=== PATIENT | male | born 1995 | race African-American/Black ===

== ENCOUNTER 2019-09-27 08:26 | Emergency (ER) | payer SELFPAY ==
[~2019-09-27] VITALS: Ht 177.8 cm; Wt 78.5 kg
[~2019-09-27 08:26] MED LIST: IBUP-1986 PO
[2019-09-27 08:35] VITALS: BP 140/92
[2019-09-27] MEDS ORDERED: HYDR-4383 PO (09:25)
[2019-09-27] MEDS ORDERED: CHLO473M3 PO (09:25)
[2019-09-27] MEDS ORDERED: AMOX500C2 PO (09:25)
== END 2019-09-27 09:38 | disposition home or self-care (01) ==
LOC: ER 08:26
DX: K05.20 Aggressive periodontitis, unspecified (principal); Z56.0 Unemployment, unspecified; Z79.899 Other long term (current) drug therapy
CPT/HCPCS: 99283

== ENCOUNTER 2020-05-21 10:30 | Emergency (ER) | payer MEDICAID, OTHER ==
[~2020-05-21] VITALS: Ht 177.8 cm; Wt 79.0 kg
[~2020-05-21 10:30] MED LIST changes: +CHLO473M3 PO; +HYDR-4383 PO
[2020-05-21 11:00] VITALS: BP 126/86
[2020-05-21 11:29] LABS: CLARITY,URINE CLEAR (Clear); COLOR,URINE YELLOW (Yellow); GLUCOSE, URINE NEGATIVE (Neg); KETONES,URINE NEGATIVE (Neg); LEUKOCYTE ESTERASE ,URINE TRACE (Neg); NITRITES, URINE NEGATIVE (Neg); OCCULT BLOOD,URINE NEGATIVE (Neg); PH,URINE 5.5 (4.8-8.0); PROTEIN,URINE NEGATIVE (Neg); UROBILINOGEN,URINE 0.2 E.U/dL (0.2-1.0)
[2020-05-21 11:34] LABS: UA COLLECTION TYPE NON-SPECIFIED
[2020-05-21 11:35] LABS: BACTERIA,URINE NONE SEEN /HPF (Neg); MUCUS STRANDS FEW /LPF (Neg); RBC,URINE NONE SEEN /HPF (0-2); SQUAMOUS EPITHELIAL CELL,UR NONE SEEN /LPF (FEW)
[2020-05-21 11:39] LABS: URINE AMPHETAMINE SCREEN NEGATIVE (Neg); URINE BARBITUATE SCREEN NEGATIVE (Neg); URINE BENZODIAZEPINES SCREEN NEGATIVE (Neg); URINE CANNABINOID SCREEN POSITIVE (Neg); URINE COCAINE SCREEN NEGATIVE (Neg); URINE METHADONE SCREEN NEGATIVE (Neg); URINE OPIATE SCREEN NEGATIVE (Neg); URINE PHENCYCLIDINE SCREEN NEGATIVE (Neg)
[2020-05-21 13:33] LABS: BASOPHILS % (AUTO) 0.6 % (0-1); EOSINOPHILS % (AUTO) 0.7 % (0-6); HEMATOCRIT 44.9 % (42.0-52.0); HEMOGLOBIN 14.1 g/dl (14.0-17.9); LYMPHOCYTES # (AUTO) 2.2 X10'3 (1.1-4.8); LYMPHOCYTES % (AUTO) 44.3 % (21-51); MEAN CORPUSCULAR HEMOGLOBIN 23.2 PG (27.0-31.0); MEAN CORPUSCULAR HGB CONC 31.5 g/dL (33.0-36.5); MEAN CORPUSCULAR VOLUME 73.8 FL (78-98); MEAN PLATELET VOLUME 8.1 FL (7.4-10.4); MONOCYTES # (AUTO) 0.4 X10'3 (0-0.9); NEUTROPHILS # (AUTO) 2.3 X10'3 (1.8-7.7); NEUTROPHILS % (AUTO) 46.4 % (42-75); PLATELET COUNT 248 X10'3 (140-440); RED BLOOD COUNT 6.08 X10'6 (4.70-6.10); RED CELL DISTRIBUTION WIDTH 15.3 % (11.5-14.5)
[2020-05-21 13:43] LABS: ALANINE AMINOTRANSFERASE 17 U/L (12-78); ALBUMIN/GLOBULIN RATIO 1.1 (1.1-1.5); ALKALINE PHOSPHATASE 92 IU/L (46-116); ANION GAP 9 (8-16); ASPARTATE AMINO TRANSFERASE 18 U/L (10-37); BILIRUBIN,TOTAL 0.3 MG/DL (0.1-1.0); BLOOD UREA NITROGEN 5 MG/DL (7-18); BUN/CREATININE RATIO 5.7 (5.4-32.0); CALCIUM 8.9 MG/DL (8.5-10.1); CHLORIDE 108 MMOL/L (99-107); CREATININE 0.87 MG/DL (0.60-1.10); GLUCOSE 80 MG/DL (70-104); SODIUM 146 MMOL/L (135-145); TOTAL CARBON DIOXIDE 28.7 MMOL/L (24-32); TOTAL PROTEIN 7.7 G/DL (6.4-8.2); eGFR > 90 ML/MIN
--- NOTE | 2020-05-21 15:00 | NUR ---
1100am 05/21/2020 SART exam beagn in ER bed 12 PT verbalizes understanding of exam and consents PT remains calm and cooperative throughout exam Pt's vitals WNL at exam's start dirty urine collected and sent to lab for UA and drug screen. Pt's answers questions prompted on [employer] 2-950 form 1130 collected clothing for evidence wood's la.mp exam completed Pictures taken 11:50 swabs collected and placed in dryer per protocol 12:30 Physician visits with patient and medically clears him. Prophylaxis is discussed and offered to pt, but patient declines. 1305 Blood drawn area cleaned with benzalkonium chloride (non alcoholoc wipe) blood sent to lab for CBC and chem panel 1330 PT departed at 1330 in police custody in stable condition. Swabs labeled, boxed, and sealed per protocol Sign placed on exam door reading "DO NOT ENTER UNER ANY CIRCUMSTANCE" Pictures copied to disc. [place] called, Officer Pritesh of [place] picked up kit.
== END 2020-05-21 15:42 | disposition home or self-care (01) ==
LOC: ER 10:31
DX: Z04.41 Encounter for examination and observation following alleged adult rape (principal); Z56.0 Unemployment, unspecified; Z79.899 Other long term (current) drug therapy
CPT/HCPCS: 36415; 80053; 80305; 81001; 85025; 99283; 99284

== ENCOUNTER 2023-06-21 02:53 | Emergency (ER) | payer MEDICAID, OTHER ==
[~2023-06-21] VITALS: Ht 177.8 cm; Wt 84.4 kg
[2023-06-21 02:57] VITALS: BP 121/72; PULSE 72; RESP 14; TEMP 98; O2SAT 99
--- NOTE | 2023-06-21 03:27 | NUR ---
Patient presents with ataxic gait when walking to ER bed 9. He mumbles when asked questions, he looks sleepy too.
[2023-06-21 03:39] LABS: HEMOGLOBIN 13.5 g/dl (14.0-17.9); WHITE BLOOD COUNT 4.5 X10'3 (4.5-11.0)
[2023-06-21 03:41] LABS: BASOPHILS % (AUTO) 0.8 % (0-1); EOSINOPHILS % (AUTO) 0.6 % (0-6); HEMATOCRIT 41.9 % (42.0-52.0); LYMPHOCYTES # (AUTO) 2.6 X10'3 (1.1-4.8); MEAN CORPUSCULAR HEMOGLOBIN 23.1 PG (27.0-31.0); MEAN CORPUSCULAR HGB CONC 32.3 g/dL (33.0-36.5); MEAN CORPUSCULAR VOLUME 71.7 FL (78-98); MEAN PLATELET VOLUME 8.4 FL (7.4-10.4); MONOCYTES # (AUTO) 0.4 X10'3 (0-0.9); MONOCYTES % (AUTO) 8.7 % (2-12); NEUTROPHILS # (AUTO) 1.5 X10'3 (1.8-7.7); NEUTROPHILS % (AUTO) 32.9 % (42-75); PLATELET COUNT 203 X10'3 (140-440); RED BLOOD COUNT 5.84 X10'6 (4.70-6.10); RED CELL DISTRIBUTION WIDTH 14.9 % (11.5-14.5)
[2023-06-21 03:51] LABS: ALANINE AMINOTRANSFERASE 28 U/L (12-78); ALBUMIN/GLOBULIN RATIO 1.3 (1.1-1.5); ALKALINE PHOSPHATASE 89 IU/L (46-116); ANION GAP 11 (8-16); ASPARTATE AMINO TRANSFERASE 34 U/L (10-37); BILIRUBIN,TOTAL 0.4 MG/DL (0.1-1.0); BLOOD UREA NITROGEN 13 MG/DL (7-18); CALCIUM 9.1 MG/DL (8.5-10.1); CHLORIDE 103 MMOL/L (99-107); CREATININE 1.45 MG/DL (0.60-1.10); GLUCOSE 105 MG/DL (70-104); POTASSIUM 3.5 MMOL/L (3.5-5.1); SODIUM 141 MMOL/L (135-145); TOTAL CARBON DIOXIDE 27.1 MMOL/L (24-32); TOTAL PROTEIN 7.2 G/DL (6.4-8.2); eGFR 70 ML/MIN
[2023-06-21 04:17] LABS: MICROCYTOSIS 1+; PLATELET ESTIMATE NORMAL; TOTAL CELLS COUNTED 100
[2023-06-21 04:18] LABS: ELLIPTOCYTES FEW
[2023-06-21] MEDS ORDERED: acetaminophen 325mg tablet PO ONE (04:45)
== END 2023-06-21 04:55 | disposition home or self-care (01) ==
LOC: ER 02:54
DX: R07.89 Other chest pain (principal); Z79.899 Other long term (current) drug therapy; Z79.1 Long term (current) use of non-steroidal anti-inflammatories (NSAID)
CPT/HCPCS: 36415; 71045; 80053; 83880; 84484; 85007; 85025; 93005; 99285

== ENCOUNTER 2023-12-14 13:13 | Emergency (ER) | payer MEDICAID ==
[~2023-12-14] VITALS: Ht 177.8 cm; Wt 78.8 kg
[2023-12-14 14:01] VITALS: TEMP 98
[2023-12-14 14:31] LABS: BASOPHILS % (AUTO) 0.6 % (0-1); EOSINOPHILS % (AUTO) 0.7 % (0-6); HEMATOCRIT 44.5 % (42.0-52.0); HEMOGLOBIN 14.3 g/dl (14.0-17.9); LYMPHOCYTES # (AUTO) 1.8 X10'3 (1.1-4.8); LYMPHOCYTES % (AUTO) 46.8 % (21-51); MEAN CORPUSCULAR HEMOGLOBIN 23.2 PG (27.0-31.0); MEAN CORPUSCULAR HGB CONC 32.2 g/dL (33.0-36.5); MEAN CORPUSCULAR VOLUME 72.1 FL (78-98); MEAN PLATELET VOLUME 7.9 FL (7.4-10.4); MONOCYTES # (AUTO) 0.3 X10'3 (0-0.9); MONOCYTES % (AUTO) 8.8 % (2-12); NEUTROPHILS # (AUTO) 1.7 X10'3 (1.8-7.7); NEUTROPHILS % (AUTO) 43.1 % (42-75); PLATELET COUNT 214 X10'3 (140-440); RED BLOOD COUNT 6.17 X10'6 (4.70-6.10); RED CELL DISTRIBUTION WIDTH 14.2 % (11.5-14.5); WHITE BLOOD COUNT 3.9 X10'3 (4.5-11.0)
[2023-12-14 14:49] LABS: ALANINE AMINOTRANSFERASE 23 U/L (12-78); ALBUMIN 3.9 G/DL (3.4-5.0); ALKALINE PHOSPHATASE 83 IU/L (46-116); ANION GAP 5 (8-16); ASPARTATE AMINO TRANSFERASE 15 U/L (10-37); BILIRUBIN,TOTAL 0.4 MG/DL (0.1-1.0); BLOOD UREA NITROGEN 10 MG/DL (7-18); BUN/CREATININE RATIO 8.4 (10.0-20.0); CALCIUM 9.2 MG/DL (8.5-10.1); CHLORIDE 105 MMOL/L (99-107); CREATININE 1.19 MG/DL (0.60-1.10); GLUCOSE 83 MG/DL (70-104); SODIUM 140 MMOL/L (135-145); TOTAL CARBON DIOXIDE 30.2 MMOL/L (24-32); TOTAL PROTEIN 7.7 G/DL (6.4-8.2); eCRCL 95 ML/MIN; eGFR 88 ML/MIN
[2023-12-14 14:51] VITALS: BP 119/82; PULSE 61; RESP 14; O2SAT 100
[2023-12-14 14:58] LABS: PRO BRAIN NATRIURETIC PEPTIDE < 30 PG/ML (0-125)
[2023-12-14 16:52] LABS: BILIRUBIN,URINE NEGATIVE (Neg); CLARITY,URINE CLEAR (Clear); COLOR,URINE YELLOW (Yellow); GLUCOSE, URINE NEGATIVE (Neg); KETONES,URINE 15 mg/dl (Neg); LEUKOCYTE ESTERASE ,URINE NEGATIVE (Neg); NITRITES, URINE NEGATIVE (Neg); OCCULT BLOOD,URINE NEGATIVE (Neg); PROTEIN,URINE NEGATIVE (Neg); UROBILINOGEN,URINE 0.2 E.U/dL (0.2-1.0)
[2023-12-14 16:56] LABS: UA COLLECTION TYPE CLN CATCH MIDSTREAM
[2023-12-14 17:01] LABS: URINE AMPHETAMINE SCREEN NEGATIVE (Neg); URINE BARBITUATE SCREEN NEGATIVE (Neg); URINE BENZODIAZEPINES SCREEN NEGATIVE (Neg); URINE CANNABINOID SCREEN NEGATIVE (Neg); URINE COCAINE SCREEN NEGATIVE (Neg); URINE METHADONE SCREEN NEGATIVE (Neg); URINE OPIATE SCREEN NEGATIVE (Neg); URINE PHENCYCLIDINE SCREEN NEGATIVE (Neg)
== END 2023-12-14 17:57 | disposition home or self-care (01) ==
LOC: ER 13:13
DX: R07.2 Precordial pain (principal); R00.2 Palpitations; Z79.899 Other long term (current) drug therapy; Z56.0 Unemployment, unspecified
CPT/HCPCS: 36415; 71045; 80053; 80305; 81003; 83880; 84484; 85025; 93005; 99285

== ENCOUNTER 2023-12-17 22:39 | Emergency (ER) | payer MEDICAID ==
[~2023-12-17] VITALS: Ht 180.3 cm; Wt 95.5 kg
[2023-12-18 01:46] VITALS: BP 122/60; PULSE 98; RESP 16; TEMP 98.6; O2SAT 99
== END 2023-12-18 01:54 | disposition home or self-care (01) ==
LOC: ER 22:41
DX: Z79.899 Other long term (current) drug therapy
CPT/HCPCS: 99283

== ENCOUNTER 2023-12-21 16:33 | Emergency (ER) | payer MEDICAID ==
[~2023-12-21] VITALS: Ht 177.8 cm; Wt 79.9 kg
[2023-12-21 16:44] VITALS: BP 113/74; PULSE 82; RESP 16; TEMP 98.3; O2SAT 97
[2023-12-21] MEDS ORDERED: CLOT24CR TOP (16:56)
== END 2023-12-21 18:13 | disposition home or self-care (01) ==
LOC: ER 16:33
DX: B35.3 Tinea pedis (principal); Z56.0 Unemployment, unspecified; Z79.899 Other long term (current) drug therapy
CPT/HCPCS: 99282

== ENCOUNTER 2024-02-04 19:44 | Emergency (ER) | payer MEDICAID ==
[~2024-02-04] VITALS: Ht 177.8 cm; Wt 80.3 kg
[~2024-02-04 19:44] MED LIST changes: +CLOT24CR TOP
[2024-02-04 19:49] VITALS: BP 136/81; PULSE 103; RESP 18; TEMP 98.6; O2SAT 99
== END 2024-02-04 22:08 | disposition left against medical advice (07) ==
LOC: ER 19:44
DX: M79.671 Pain in right foot (principal); Z53.21 Procedure and treatment not carried out due to patient leaving prior to being seen by health care provider
CPT/HCPCS: 99281